=== PATIENT | female | born 1955 | race Caucasian/White ===

== ENCOUNTER 2020-08-05 09:57 | Outpatient (CLI) | payer MEDICARE, SELFPAY ==
[2020-08-05 10:24] LABS: Basophils % 0.4 %; Eosinophils % 0.4 %; Hematocrit 42.1 % (37.0-47.0); Hemoglobin 13.5 g/dL (11.5-15.3); Lymphocytes % 22.1 %; Mean Corpuscular HGB Conc 32.1 g/dL (30.0-36.0); Mean Corpuscular Hemoglobin 29.9 pg (28.0-34.0); Mean Corpuscular Volume 93.1 fL (81-99); Mean Platelet Volume 10.6 fL (7.4-10.4); Monocytes # 0.2 10^3/uL (0.2-0.9); Monocytes % 4.3 %; Neutrophils # 3.38 10^3/uL (1.8-7.7); Neutrophils % 72.4 %; Nucleated Red Blood Cells % 0 %; Platelet Count 240 10^3/cmm (130-400); Red Blood Count 4.52 10^6/uL (4.1-5.3); Red Cell Distribution Width 13.5 % (12.1-15.1); White Blood Count 4.7 10^3/uL (4.0-10.0)
[2020-08-05 10:45] LABS: Alanine Aminotransferase 13 U/L (0-33); Albumin Level 4.6 g/dL (3.5-5.2); Alkaline Phosphatase 47 IU/L (35-105); Aspartate Amino Transferase 18 U/L (0-32); Blood Urea Nitrogen 12 mg/dL (8-23); Calcium 9.5 mg/dL (8.5-10.5); Carbon Dioxide 24 mmol/L (22-29); Chloride 106 mmol/L (98-107); Globulin 2.7 g/dL (1.3-4.6); Glomerular Filtration Rate 72.4 mL/min (90-130); Glucose 115 mg/dL (65-115); Osmolality Calculated 291 mOsm/kg (285-295); Sodium 140 mmol/L (136-145); Total Bilirubin 0.3 mg/dL (0.15-1.2); Total Protein 7.3 g/dL (6.6-8.7)
--- NOTE | 2020-08-09 16:25 | ONC FU_ITS ---
Dr. Osborn Patient Follow-Up Note Patient: Patti Kuhn Unit #: [id number]: 1955 Dicatated By: Ankur Osborn M.D.Date of Visit:Aug 05, 2020 Onc Med Follow-up/Prog Note Chief Complaint: Breast cancer. History of Present Illness: This is a 61 year-old woman with grade 3 infiltrating ductal carcinoma of the right breast, stage IIIC (pT2,pN3, M0), ER/MA negative and HER-2/leticia negative. She underwent right modified radical mastectomy and prophylactic left mastectomy in October 2004. Pathology showed involvement in 18 of 21 axillary lymph nodes. She was given adjuvant chemotherapy with 4 cycles of FEC and 2 cycles of Taxotere. The Taxotere was abbreviated because of neurotoxicity. Chemotherapy was completed in March 2005. She was then given prophylactic chest wall radiation. She has remained on observation since then. She developed multiple complaints following the chemotherapy, the most significant being chronic pain and chronic fatigue. Thus far there has been no documented recurrence of her breast cancer. Her other medical illnesses include asthma, GERD, irritable bowel syndrome, and anxiety/depression. She has had evidence of vitamin D deficiency, but she was not able to tolerate a vitamin D3 supplement. She is seen for a scheduled visit. She has been feeling pretty good generally. She continues to complain that she is tired, particularly in the afternoons. Her ECOG score is 1. Appetite is variable, but her weight is stable. She has no fever, night sweats, or hot flashes. Her breathing has been okay. She very seldom has cough. She does not complain of chest pain. She has no GI complaints other than her bowels tend to fluctuate between diarrhea and constipation, but that is chronic. She has some urgency with urination and she occasionally has bladder incontinence. She has pain in her knees and feet and she also has back pain. She recently developed a painful knot at the base of her left thumb. She reports having some numbness/tingling in both hands. She has no other focal neurologic symptoms. Medications: Aleve 1 (220 mg) Tablet Oral daily PRN, Cetirizine HCl 10 mg - Take 1 Tablet Oral daily, LORazepam 1 (0.5 mg) Tablet Oral daily PRN, Pantoprazole Sodium 1 Tablet (of 40 mg) Tablet, enteric coated Oral daily, Singulair 1 (10 mg) Tablet Oral daily, Vitamin D3 1 Tablet (of 40377 Units) Oral q 7 days Allergies: Morphine Sulfate and tetracycline, nickel. Review of Systems: Constitutional - She feels tired, particularly in the afternoon. Appetite is variable, but her weight is stable.No fever, night sweats, or hot flashes. ECOG score is 1, ENMT - She always has sinus congestion/drainage. She complains of dry mouth. No sore throat or difficulty swallowing, Hematologic/Lymphatic - She has a few bruises, Respiratory - No shortness of breath. No cough. No pleuritic pain or hemoptysis, Cardiovascular - No angina pain. No palpitations, Gastrointestinal - No nausea or vomiting. Her acid reflux is adequately managed with pantoprazole. Bowel function is the same. She alternates between diarrhea and constipation. No blood in the stool or black stools, Genitourinary (F) - No dysuria or hematuria. No urinary frequency. She has urgency with urination and she has occasional incontinence, Musculoskeletal - No joint or bone pain, Integumentary - She has chronic pain in her knees and feet and in her back. She recently developed a painful knot at the base of her left thumb, Neurologic - She occasionally has headache and she has occasional dizziness. She has numbness/tingling in both hands. No other focal neurologic symptoms, Psychiatric - She has chronic anxiety. She does not sleep well at night. Vital Signs: Performed on Aug 05, 2020 11:33 Height - 63.00 in Weight - 142.2 lbs (HIGH) BSA - 1.67 sq.m BMI - 25.19 Temperature - 98.9 F (HIGH) Pulse - 83 /min Respiration - 18 /min BP - 144/72 mm(hg) (HIGH) O2 Sat - 98 % Pain - 8 Physical Examination: Constitutional - She looks pretty good generally, Eyes - Sclerae nonicteric. Conjunctivae clear, ENMT - No lesions noted in the oral cavity, Hematologic/Lymphatic - No cervical or clavicular adenopathy, Respiratory - Lungs are clear with good air movement bilaterally, Cardiovascular - Heart rhythm is regular. There is a II/ systolic murmur. There is no gallop or rub noted, Breasts - There are no chest wall lesions noted. There is no axillary adenopathy, Abdomen - Soft. Liver and spleen are not enlarged. There is no abdominal mass or ascites noted and there is no inguinal adenopathy, Extremities - No edema. There is a firm nodule at the left first metacarpal/phalangeal joint, Neurologic - No focal neurologic deficits noted. Lab/Imaging: Test performed on Aug 05, 2020 10:12 Sodium 140 mmol/L Potassium 4.0 mmol/L Chloride 106 mmol/L CO2 24 mmol/L Anion Gap 14.0 BUN 12 mg/dL Creatinine 0.8 mg/dL Cr Clearance (Est) 73.29 mL/min eGFR 72.4 mL/min Glucose 115 mg/dL Osmolality - Calculated 291 mOsm/kg Calcium 9.5 mg/dL Protein, Total 7.3 g/dL Albumin 4.6 g/dL Globulin 2.7 g/dL Bilirubin, Total 0.3 mg/dL ALT (SGPT) 13 U/L AST (SGOT) 18 U/L Alkaline Phosphatase 47 IU/L WBC 4.7 10 3/uL RBC 4.52 10 6/uL HGB 13.5 g/dL HCT 42.1 % MCV 93.1 fL MCH 29.9 pg MCHC 32.1 g/dL RDW 13.5 % Platelet Count 240 10 3/cmm MPV 10.6 fL Neutrophils 3.38 10 3/uL Lymphocytes 1.0 10 3/uL Monocytes 0.2 10 3/uL Eosinophils 0.0 10 3/uL Basophils 0.0 10 3/uL Neutrophil % 72.4 % Lymphocyte % 22.1 % Monocyte % 4.3 % Eosinophil % 0.4 % Basophils % 0.4 % NRBC % 0 % Impression: 1. The patient has grade 3 infiltrating ductal carcinoma of the right breast, stage IIIC, ER/MA negative and HER-2/leticia negative. 2. She underwent right modified radical mastectomy and prophylactic left mastectomy in October 2004. 3. She was given adjuvant chemotherapy with 4 cycles of FEC and 2 cycles of Taxotere, completed in March 2005. 4. She was then given prophylactic chest wall radiation. 5. She has had multiple chronic complaints following the chemothearapy including fatigue, cognitive dysfunction, and chronic pain. Her other medical illnesses include: 6. Asthma. 7. GERD. 8. Irritable bowel syndrome. 9. Anxiety and depression. She has had chronic fatigue and pain following her chemotherapy. She recently developed a painful knot at the base of her left thumb. Her overall clinical status otherwise appears stable. Overall, she has been doing well with no evidence of recurrence of the breast cancer. Plan: She remains on observation for the breast cancer. I will arrange for referral to rheumatology for treatment of the arthritis in her left thumb. I will see her again in 1 year, or sooner as needed. Signed By: Ankur Osborn M.D. <<Signature on File>>
== END 2020-08-05 09:58 | disposition home or self-care (01) ==
LOC: ONCMED 10:02
PROVIDERS: PCP Nurse Practitioner Family; Visit Provider Internal Medicine Medical Oncology
DX: Z08 Encounter for follow-up examination after completed treatment for malignant neoplasm (principal); Z85.3 Personal history of malignant neoplasm of breast; M19.042 Primary osteoarthritis, left hand; R53.83 Other fatigue; G89.29 Other chronic pain; J45.909 Unspecified asthma, uncomplicated; K21.9 Gastro-esophageal reflux disease without esophagitis; K58.9 Irritable bowel syndrome, unspecified; F41.8 Other specified anxiety disorders; Z92.3 Personal history of irradiation; Z92.21 Personal history of antineoplastic chemotherapy; Z90.13 Acquired absence of bilateral breasts and nipples
CPT/HCPCS: 36415; 80053; 85025; 99214

== ENCOUNTER → 2020-08-12 15:21 | Outpatient (BNVA) | payer MEDICARE, SELFPAY | PROVIDERS: PCP Nurse Practitioner Family; Visit Provider Internal Medicine Rheumatology | DX: M18.12 Unilateral primary osteoarthritis of first carpometacarpal joint, left hand (principal); C50.911 Malignant neoplasm of unspecified site of right female breast; Z17.1 Estrogen receptor negative status [ER-] | CPT/HCPCS: 20600; 99203; J1030 ==

== ENCOUNTER 2021-02-03 00:33 | Emergency (ER) | payer MEDICARE, SELFPAY ==
[2021-02-03 00:36] VITALS: BP 144/92; PULSE 86; RESP 15; TEMP 36.9; O2SAT 97; BMI 24.7
--- NOTE | 2021-02-03 00:54 | W.ED.NAVMDI ---
HPI - Nausea/Vomiting/Diarrhea General: Chief complaint: Nausea/Vomiting/Diarrhea Stated complaint: n/v Time Seen by Provider: 02/03/21 00:48 History of Present Illness: HPI Narrative: Patient states about 830s her stomach just started feeling nauseous. That 920 pain hit. She took some omeprazole that did not help. She said she ate big potato sour cream the night and started hurting soon after the. Patient's said he started having some pretty severe reflux after eating the same thing this evening. Patient denies any fever chills urinary , bowel or bladder problems. Does have a history of GERD and she said it hurts up in her upper abdomen especially. She said she vomited one time. MD elicited complaint: nausea, vomiting and abdominal pain Onset (ago): hour(s) Description of vomiting: food contents Associated nausea: Yes Associated abdominal pain: Yes Location of pain: Epigastric Pain consistency: constant Severity: moderate Quality: cramping and aching Exacerbating factors: none Relieving factors: none Associated symtoms: Reports nausea; Denies anxiety, change in vision, chest pain or headache(s) Review of Systems Const: Denies: fever(s), chills or body aches Eyes: Denies: change in vision or blurry vision ENMT: Denies: throat pain or nasal congestion Card: Denies: chest pain or dyspnea on exertion Resp: Denies: dyspnea, productive cough or non-productive cough GI: Reports: nausea, vomiting and other (Reflux) Musc: Denies: extremity pain Skin/Breast: Denies: rash Neuro: Denies: headache(s) Psych: Denies: anxiety or depression Jewel/Lymph: Denies: easy bruising PFSH ED PFSH: Medical History (Updated 08/12/20 @ 17:03 by Lance Steward MD) Breast cancer History of gastroesophageal reflux (GERD) Infiltrating ductal carcinoma of right female breast Osteoarthritis of carpometacarpal (CMC) joint of left thumb S/P steroid/lidocaine injection today Surgical History (Updated 08/12/20 @ 16:50 by Lance Steward MD) History of bilateral mastectomy for breast cancer Family History (Updated 08/12/20 @ 15:50 by Brooke Junior LPN) Other CAD (coronary artery disease) Denies family history of Rheumatoid arthritis Diabetes Lupus Chronic kidney disease (CKD) Lung disease Cancer Hypertension Stroke Social History (Updated 08/12/20 @ 15:50 by Brooke Junior LPN) Smoking and tobacco status: never smoked Alcohol intake: never History of recent travel: No Physical Exam Const: COMMON NORMALS: no acute distress, average body habitus and patient oriented x3 HENMT: COMMON NORMALS: normocephalic HEAD & SCALP: normal to inspection and normocephalic FACE & SINUS: normal facial exam Eye: COMMON NORMALS: conjunctivae normal GENERAL EYE: appearance normal, both eyes and all related structures CONJUNCTIVA: Yes conjunctivae normal Neck/C-Spine: COMMON NORMALS: no JVD Chest: COMMONS NORMALS: normal inspection of the chest Resp: COMMON NORMALS: normal respiratory effort and clear to auscultation bilaterally AUSCULTATION: clear to auscultation bilaterally Cardio: COMMON NORMALS: no JVD, regular rate and regular rhythm RATE: regular rate RHYTHM: regular rhythm GI: AUSCULTATION: Yes normoactive bowel sounds PALPATION: Yes Tenderness to palpation present (GI) (Gastric) PERCUSSION: normal to percussion Extremity: COMMON NORMALS: normal to inspection and full ROM Neuro: COMMON NORMALS: patient oriented x3 Course Vital Signs: Vital signs: Vital Signs Temperature 98.4 F 02/03/21 00:36 Pulse Rate 74 02/03/21 01:48 Respiratory Rate 20 H 02/03/21 01:48 Blood Pressure 124/84 02/03/21 01:48 Pulse Oximetry 96 02/03/21 01:48 MDM - Nausea/Vomiting/Diarrhea MDM Narrative: Medical decision making narrative: She had complete relief with GI cocktail. Patient requesting go home. Lab Data: Labs: Lab Results 02/03/21 02/03/21 Range/Units 01:25 01:25 WBC 11.0 H (4.0-10.0) 10^3/ uL RBC 4.22 (4.1-5.3) 10^6/u L Hgb 12.8 (11.5-15.3) g/dL Hct 38.5 (37.0-47.0) % MCV 91.2 (81-99) fL MCH 30.3 (28.0-34.0) pg MCHC 33.2 (30.0-36.0) g/dL RDW 13.4 (12.1-15.1) % Plt Count 241 (130-400) 10^3/c mm MPV 12.5 H (7.4-10.4) fL Neut % (Auto) 89.3 % Lymph % (Auto) 5.0 % Navarro % (Auto) 4.9 % Eos % (Auto) 0.2 % Baso % (Auto) 0.3 % Neut # (Auto) 9.87 H (1.8-7.7) 10^3/u L Lymph # (Auto) 0.6 L (0.8-4.8) 10^3/u L Navarro # (Auto) 0.5 (0.2-0.9) 10^3/u L Eos # (Auto) 0.0 (0.0-0.8) 10^3/u L Baso # (Auto) 0.0 (0.0-0.1) 10^3/u L Nucleated RBC % (a uto) 0 % Nucleated RBCs # 0.0 /100WBC Sodium Cancelled Potassium Cancelled Chloride Cancelled Carbon Dioxide Cancelled Anion Gap Cancelled BUN Cancelled Creatinine Cancelled GFR Calculation Cancelled Glucose Cancelled Calculated Osmolal ity Cancelled Calcium Cancelled Total Bilirubin Cancelled AST Cancelled ALT Cancelled Alkaline Phosphata se Cancelled Total Protein Cancelled Albumin Cancelled Globulin Cancelled Lipase Cancelled Discharge Plan Discharge Prescriptions: No Action cholecalciferol (vitamin D3) [Vitamin D3] 50 mcg (2,000 unit) capsule 150 mcg PO DAILY RF: 0 pantoprazole 40 mg tablet,delayed release (DR/EC) 40 mg PO DAILY 90 Days Qty: 90 RF: 3 montelukast [Singulair] 10 mg tablet 10 mg PO DAILY 90 Days Qty: 90 RF: 3 cetirizine [Zyrtec] 10 mg tablet 10 mg PO DAILY 90 Days Qty: 90 RF: 3 Coding Level of Care Code ED Inpatient Pharmacist for Chg Fwd Exam Comprehensive
[2021-02-03] MEDS: lidocaine 2% viscous 15 ML, aluminum-mag hydrox-simethicon 30 ML, sucralfate oral liq 1 GM PO (01:10)
[2021-02-03] MEDS: ondansetron 2 mg/ML SDV 2 mL 8 MG IVP (01:10)
[2021-02-03] MEDS: sodium chloride 0.9% 1,000 ML 999 ML IV (01:15)
[2021-02-03 01:46] LABS: Basophils % 0.3 %; Eosinophils % 0.2 %; Hematocrit 38.5 % (37.0-47.0); Hemoglobin 12.8 g/dL (11.5-15.3); Lymphocytes # 0.6 10^3/uL (0.8-4.8); Mean Corpuscular HGB Conc 33.2 g/dL (30.0-36.0); Mean Corpuscular Hemoglobin 30.3 pg (28.0-34.0); Mean Corpuscular Volume 91.2 fL (81-99); Mean Platelet Volume 12.5 fL (7.4-10.4); Monocytes # 0.5 10^3/uL (0.2-0.9); Monocytes % 4.9 %; Neutrophils # 9.87 10^3/uL (1.8-7.7); Neutrophils % 89.3 %; Nucleated Red Blood Cells % 0 %; Platelet Count 241 10^3/cmm (130-400); Red Blood Count 4.22 10^6/uL (4.1-5.3); Red Cell Distribution Width 13.4 % (12.1-15.1)
[2021-02-03 01:48] VITALS: BP 124/84; PULSE 74; RESP 20; O2SAT 96
[2021-02-03 02:39] VITALS: BP 124/84; PULSE 74; RESP 16; O2SAT 96
[2021-02-03 02:47] LABS: Alanine Aminotransferase 9 U/L (0-33); Albumin Level 3.7 g/dL (3.5-5.2); Alkaline Phosphatase 42 IU/L (35-105); Anion Gap 11.7 (5-19); Aspartate Amino Transferase 15 U/L (0-32); Blood Urea Nitrogen 13 mg/dL (8-23); Calcium 8.1 mg/dL (8.5-10.5); Carbon Dioxide 24 mmol/L (22-29); Chloride 112 mmol/L (98-107); Globulin 2.3 g/dL (1.3-4.6); Glucose 120 mg/dL (65-115); Lipase 34 U/L (13-60); Osmolality Calculated 299 mOsm/kg (285-295); Potassium 3.7 mmol/L (3.5-5.1); Sodium 144 mmol/L (136-145); Total Bilirubin 0.5 mg/dL (0.15-1.2)
== END 2021-02-03 02:43 | disposition home or self-care (01) ==
PROVIDERS: Emergency Provider Nurse Practitioner Family; PCP Nurse Practitioner Family
DX: R11.2 Nausea with vomiting, unspecified (principal); Z85.3 Personal history of malignant neoplasm of breast
CPT/HCPCS: 36415; 80053; 83690; 85025; 96361; 96374; 99283; J2405; J7030

== ENCOUNTER 2021-08-05 09:19 | Outpatient (CLI) | payer MEDICARE, SELFPAY ==
[2021-08-05 10:05] LABS: Basophils % 0.9 %; Eosinophils # 0.1 10^3/uL (0.0-0.8); Eosinophils % 1.1 %; Hematocrit 40.7 % (37.0-47.0); Hemoglobin 13.1 g/dL (11.5-15.3); Lymphocytes % 23.7 %; Mean Corpuscular HGB Conc 32.2 g/dL (30.0-36.0); Mean Corpuscular Hemoglobin 29.8 pg (28.0-34.0); Mean Corpuscular Volume 92.5 fl (81-99); Mean Platelet Volume 11.2 fL (7.4-10.4); Monocytes # 0.3 10^3/uL (0.2-0.9); Monocytes % 6.2 %; Neutrophils # 2.98 10^3/uL (1.8-7.7); Neutrophils % 67.9 %; Nucleated Red Blood Cells % 0 %; Platelet Count 233 10^3/cmm (130-400); Red Cell Distribution Width 13.5 % (12.1-15.1); White Blood Count 4.4 10^3/uL (4.0-10.0)
[2021-08-05 10:35] LABS: Alanine Aminotransferase 10 U/L (0-33); Albumin Level 4.3 g/dL (3.5-5.2); Alkaline Phosphatase 48 IU/L (35-105); Aspartate Amino Transferase 15 U/L (0-32); Blood Urea Nitrogen 9 mg/dL (8-23); Calcium 9.4 mg/dL (8.5-10.5); Carbon Dioxide 26 mmol/L (22-29); Chloride 107 mmol/L (98-107); Globulin 2.6 g/dL (1.3-4.6); Glomerular Filtration Rate 72.2 mL/min (90-130); Glucose 99 mg/dL (65-115); Osmolality Calculated 293 mOsm/kg (285-295); Sodium 142 mmol/L (136-145); Total Bilirubin 0.4 mg/dL (0.15-1.2); Total Protein 6.9 g/dL (6.6-8.7)
--- NOTE | 2021-08-09 09:50 | ONC FU_ITS ---
Dr. Osborn Patient Follow-Up Note Patient: Patti Kuhn Unit #: [id number]: 1955 Dicatated By: Ankur Osborn M.D.Date of Visit:Aug 05, 2021 Onc Med Follow-up/Prog Note Chief Complaint: Breast cancer. History of Present Illness: This is a 65 year-old woman with grade 3 infiltrating ductal carcinoma of the right breast, stage IIIC (pT2,pN3, M0), ER/WA negative and HER-2/leticia negative. She underwent right modified radical mastectomy and prophylactic left mastectomy in October 2004. Pathology showed involvement in 18 of 21 axillary lymph nodes. She was given adjuvant chemotherapy with 4 cycles of FEC and 2 cycles of Taxotere. The Taxotere was abbreviated because of neurotoxicity. Chemotherapy was completed in March 2005. She was then given prophylactic chest wall radiation. She was then followed expectantly. She developed multiple complaints following the chemotherapy, the most significant being chronic pain and chronic fatigue, but there was no documented recurrence of her breast cancer. Her other medical illnesses include asthma, GERD, irritable bowel syndrome, and anxiety/depression. She has had evidence of vitamin D deficiency, but she was not able to tolerate a vitamin D3 supplement. Her DEXA scan and July 2017 showed evidence of osteopenia with T score -1.7 in the lumbar spine, -1.8 in the left hip, and -1.5 in the right hip. She is a non-smoker. She is seen for a scheduled visit. She has been feeling okay, though she continues to have significant fatigue. She says her energy comes and goes. She is able to do light work. ECOG score is 1. Her appetite also comes and goes. Her weight is down 6 pounds compared to a year ago. She does not have fever, night sweats, or hot flashes. She had recently been having dental problems and she was told by the dentist that was due to dry mouth. She is now stopped taking Zyrtec. Recently she has developed pain in her right eye/right facial area, that seem to be associated with sinus drainage. She has had a little bit of sore throat. She says her breathing is not real good, but that she attributes to allergies. She does not complain of cough. She still has some pain in her chest wall. In January she had been seen in the ER with nausea/vomiting. It was attributed to GERD. She thinks she had food poisoning. She has had no recurrence of those symptoms and her GERD is otherwise been managed adequately with pantoprazole. Her bowels tend to fluctuate between diarrhea and constipation. She has some urgency with urination. She continues to complain that she is sore all over. She says her knees pop. She has headaches and she occasionally has dizziness. She sometimes has numbness/tingling. Medications: Aleve 1 (220 mg) Tablet Oral daily PRN, Cetirizine HCl 10 mg - Take 1 Tablet Oral daily, Pantoprazole Sodium 1 Tablet (of 40 mg) Tablet, enteric coated Oral daily, Singulair 1 (10 mg) Tablet Oral daily, Vitamin D3 1 Tablet ([place] 22256 Units) Oral q 7 days Allergies: Morphine Sulfate and tetracycline, nickel. Vital Signs: Performed on Aug 05, 2021 10:57 Height - 63.00 in Weight - 136.8 lbs (LOW) BSA - 1.65 sq.m BMI - 24.23 Temperature - 98.6 F Pulse - 66 /min Respiration - 18 /min BP - 133/73 mm(hg) O2 Sat - 99 % Pain - 8 Fatigue - 5 Physical Examination: Constitutional - She looks pretty good generally, Eyes - Sclerae nonicteric. Conjunctivae clear, ENMT - No lesions noted in the oral cavity, Hematologic/Lymphatic - No cervical, clavicular, or axillary adenopathy, Respiratory - Lungs are clear with good air movement bilaterally, Cardiovascular - Heart rhythm is regular. There is no murmur, gallop, or rub noted, Breasts - There are no chest wall lesions masses noted. There is no axillary adenopathy, Abdomen - Soft. Liver and spleen are not enlarged. There is no abdominal mass or ascites noted and there is no inguinal adenopathy, Extremities - No edema, Neurologic - No focal neurologic deficits noted. Lab/Imaging: Test performed on Aug 05, 2021 09:30 Sodium 142 mmol/L Potassium 4.0 mmol/L Chloride 107 mmol/L CO2 26 mmol/L Anion Gap 13.0 BUN 9 mg/dL Creatinine 0.8 mg/dL Cr Clearance (Est) 69.59 mL/min eGFR 72.2 mL/min Glucose 99 mg/dL Osmolality - Calculated 293 mOsm/kg Calcium 9.4 mg/dL Protein, Total 6.9 g/dL Albumin 4.3 g/dL Globulin 2.6 g/dL Bilirubin, Total 0.4 mg/dL ALT (SGPT) 10 U/L AST (SGOT) 15 U/L Alkaline Phosphatase 48 IU/L WBC 4.4 10 3/uL RBC 4.40 10 6/uL HGB 13.1 g/dL HCT 40.7 % MCV 92.5 fl MCH 29.8 pg MCHC 32.2 g/dL RDW 13.5 % Platelet Count 233 10 3/cmm MPV 11.2 fL Neutrophils 2.98 10 3/uL Lymphocytes 1.0 10 3/uL Monocytes 0.3 10 3/uL Eosinophils 0.1 10 3/uL Basophils 0.0 10 3/uL Neutrophil % 67.9 % Lymphocyte % 23.7 % Monocyte % 6.2 % Eosinophil % 1.1 % Basophils % 0.9 % NRBC % 0 % Problem List: 1. Grade 3 infiltrating ductal carcinoma of the right breast, stage IIIC, ER/WA negative and HER-2/leticia negative. 2. She has had chronic fatigue, cognitive dysfunction, and chronic pain following adjuvant chemotherapy. 3. Asthma. 4. GERD. 5. Irritable bowel syndrome. 6. Osteopenia. 7. Vitamin D deficiency. 8. Anxiety and depression. Problems Addressed with this Encounter and Plan: 1. Patient with grade 3 infiltrating ductal carcinoma of the right breast, stage IIIC, ER/WA negative and HER-2/leticia negative. She underwent right modified radical mastectomy and prophylactic left mastectomy in October 2004. She was given adjuvant chemotherapy with 4 cycles of FEC and 2 cycles of Taxotere, completed in March 2005. She was then given prophylactic chest wall radiation. She was then followed expectantly. She has had chronic fatigue and pain following her chemotherapy, and she also has had some cognitive dysfunction. However, thus far there has been no evidence of recurrence of the breast cancer. She remains on observation/expectant management. She can continue her regular follow-up with Cece Lyn. I will see her again as needed. 2. She had evidence of osteopenia on her previous bone density study, but that was back in July 2017. It needs to be repeated, and that will be scheduled. She will further evaluation as indicated. Signed By: Ankur Osborn M.D. <<Signature on File>>
== END 2021-08-05 09:20 | disposition home or self-care (01) ==
PROVIDERS: PCP Nurse Practitioner Family; Visit Provider Internal Medicine Medical Oncology
DX: C50.811 Malignant neoplasm of overlapping sites of right female breast (principal); Z17.1 Estrogen receptor negative status [ER-]
CPT/HCPCS: 36415; 80053; 85025; 99214

== ENCOUNTER 2021-08-18 14:00 | Outpatient (CLI) | payer MEDICARE, SELFPAY ==
--- NOTE | 2021-08-18 14:08 | XR_ITS ---
WS: [id number] SCREENING DEXA SCAN [employer] [facility] [employer] [facility] CLINICAL INFORMATION: OSTEOPENIA COMPARISON: July 23, 2017 FINDINGS: The L1-L4 bone mineral density measures 0.971 g/cm2. This corresponds to a T score score of -1.7 and Z score of -0.1. Left femoral neck bone mineral density measures 0.779 g/cm2. This corresponds to a T score of -1.8 an d Z score of -0.6. Right femoral neck bone mineral density measures 0.806 g/cm2. This corresponds to a T score -1.6of an d Z score of -0.3. Mean femoral neck bone mineral density measures 0.793 g/cm2. This corresponds to a T score of -1.7 an d Z score of -0.4. XR/XR DEXA axial skeleton* [id number] IMPRESSION: Osteopenia Patient's FRAX calculated 10 year probability for major osteoporotic fracture i s 35.5 % and osteoporotic hip fracture is 4.4%.
== END 2021-08-18 14:01 | disposition home or self-care (01) ==
PROVIDERS: PCP Nurse Practitioner Family; Visit Provider Internal Medicine Medical Oncology
DX: M81.0 Age-related osteoporosis without current pathological fracture (principal); M85.80 Other specified disorders of bone density and structure, unspecified site
CPT/HCPCS: 77080

== ENCOUNTER 2021-12-22 05:05 | Emergency (ER) | payer MEDICARE, SELFPAY ==
[2021-12-22 05:11] VITALS: BP 171/94; PULSE 81; RESP 18; TEMP 36.6; O2SAT 96; BMI 24.4
[2021-12-22 05:25] LABS: Basophils % 0.2 %; Eosinophils % 0.3 %; Hematocrit 45.8 % (37.0-47.0); Hemoglobin 14.7 g/dL (11.5-15.3); Lymphocytes # 0.6 10^3/uL (0.8-4.8); Lymphocytes % 4.8 %; Mean Corpuscular HGB Conc 32.1 g/dL (30.0-36.0); Mean Corpuscular Hemoglobin 29.7 pg (28.0-34.0); Mean Corpuscular Volume 92.5 fl (81-99); Mean Platelet Volume 10.6 fL (7.4-10.4); Monocytes # 0.4 10^3/uL (0.2-0.9); Monocytes % 2.8 %; Neutrophils # 11.74 10^3/uL (1.8-7.7); Neutrophils % 91.4 %; Nucleated Red Blood Cells % 0 %; Platelet Count 232 10^3/cmm (130-400); Red Blood Count 4.95 10^6/uL (4.1-5.3); Red Cell Distribution Width 13.4 % (12.1-15.1); White Blood Count 12.8 10^3/uL (4.0-10.0)
[2021-12-22] MEDS: sodium chloride 0.9% 1,000 ML 999 ML IV (05:28)
[2021-12-22] MEDS: ondansetron 2 mg/ML SDV 2 mL 4 MG IVP (05:28)
--- NOTE | 2021-12-22 05:32 | CTR_ITS ---
PROCEDURE INFORMATION: Exam: CT Abdomen And Pelvis With Contrast Exam date and time: 12/22/2021 5:32 AM Age: 66 years old Clinical indication: Nausea and vomiting; Prior surgery; Surgery type: Double mastectomy; Patient HX: C/O n/v/d. History of ibs. Additional info: Vomiting diarrhea, HX of cancer TECHNIQUE: Imaging protocol: Computed tomography of the abdomen and pelvis with contrast. Radiation optimization: All CT scans at this facility use at least one of these dose optimization techniques: automated exposure control; mA and/or kV adjustment per patient size (includes targeted exams where dose is matched to clinical indication); or iterative reconstruction. Contrast material: OMNI 300; Contrast volume: 95 ml; Contrast route: INTRAVENOUS (IV); COMPARISON: CT abdomen pelvis w con* [id number] 07/23/2017 2:14 PM RADIATION DOSE METRICS: Total DLP (mGy-cm): 1148.39 FINDINGS: Liver: Unremarkable. Gallbladder and bile ducts: Unremarkable. Pancreas: Unremarkable. Spleen: Unremarkable. Adrenal glands: Unremarkable. Kidneys and ureters: The right kidney is unremarkable. Subcentimeter hypodensity in the left kidney upper pole, statistically likely to represent a cyst (no further imaging suggested regarding this lesion). Stomach and bowel: No bowel obstruction identified. Diverticulosis of the colon without evidence of diverticulitis. Appendix: A normal-appearing appendix is seen in the right lower quadrant. Intraperitoneal space: No free intraperitoneal air identified. No free intraperitoneal fluid identified. Vasculature: No abdominal aortic aneurysm. Lymph nodes: Unremarkable. Urinary bladder: Unremarkable as visualized. Reproductive: Unremarkable as visualized. Bones/joints: Mild degenerative changes of the lumbar spine. Soft tissues: Unremarkable. CT/CT abdomen pelvis w con* [id number] IMPRESSION: 1. No acute intra-abdominal/intrapelvic process identified.
--- NOTE | 2021-12-22 05:37 | ED_ITS ---
Documented by User: Kaleb Luna DO 12/22/21 05:43 HPI - Nausea/Vomiting/Diarrhea General: Chief complaint: Nausea/Vomiting/Diarrhea Stated complaint: N/V/D Time Seen by Provider: 12/22/21 05:13 Source: patient History of Present Illness: 66-year-old female with a history of breast cancer. She started vomiting and having diarrhea around 120 this morning. She felt well yesterday. No fever. Some belly cramping. No blood in the stool. No sick contacts. MD elicited complaint: nausea, vomiting and diarrhea Pertinent past history: other Onset (ago): hour(s) Description of vomiting: watery Description of diarrhea: watery Associated nausea: Yes Associated abdominal pain: Yes (Cramping) Location of pain: Diffuse Radiation: diffuse Pain consistency: intermittent Severity: moderate Quality: cramping Relieving factors: none Associated symtoms: Reports bloating and nausea; Denies altered mental status, change in vision, chest pain, cough, diaphoresis, fevers/chills, headache(s) or short of breath Review of Systems Const: Denies: diaphoresis Eyes: Denies: change in vision ENMT: Denies: throat pain Card: Denies: chest pain Resp: Denies: dyspnea, productive cough or non-productive cough GI: Reports: nausea and bloating : Denies: flank pain Neuro: Denies: headache(s) PFSH ED PFSH: Medical History Breast cancer History of gastroesophageal reflux (GERD) Infiltrating ductal carcinoma of right female breast Osteoarthritis of carpometacarpal (CMC) joint of left thumb S/P steroid/lidocaine injection today Surgical History History of bilateral mastectomy for breast cancer Family History (Updated 08/12/20 @ 15:50 by Brooke Junior LPN) Other CAD (coronary artery disease) Denies family history of Rheumatoid arthritis Diabetes Lupus Chronic kidney disease (CKD) Lung disease Cancer Hypertension Stroke Social History (Updated 08/12/20 @ 15:50 by Brooke Junior LPN) Smoking and tobacco status: never smoked Alcohol intake: never History of recent travel: No Physical Exam Const: EXAM LIMITATIONS: no altered mental status GENERAL APPEARANCE: cooperative and ill appearing (Mild) NUTRITIONAL APPEARANCE: thin ORIENTATION/CONSCIOUSNESS: Yes awake, Yes oriented to person and Yes oriented to time HENMT: COMMON NORMALS: normocephalic, atraumatic and Normal external nose present HEAD & SCALP: normocephalic and atraumatic NOSE: Normal external nose present Eye: COMMON NORMALS: Equal, round and reactive pupils present and EOMs intact bilaterally PUPIL: Yes Equal, round and reactive pupils present Neck/C-Spine: COMMON NORMALS: full ROM Chest: COMMONS NORMALS: normal inspection of the chest Resp: COMMON NORMALS: normal respiratory effort, No use of accessory muscles and clear to auscultation bilaterally AUSCULTATION: clear to auscultation bilaterally Cardio: COMMON NORMALS: regular rate and regular rhythm RATE: regular rate RHYTHM: regular rhythm GI: COMMON NORMALS: Normal to inspection, nondistended, normoactive bowel sounds present and Soft to palpation PALPATION: Yes Soft to palpation, Yes Tenderness to palpation present (GI) (Mild diffuse) and No Guarding due to palpation present (GI) : COMMON NORMALS: Yes no CVA tenderness BLADDER/KIDNEY EXAM: Yes no CVA tenderness Back/Pelvis: COMMON NORMALS: no CVA tenderness Extremity: COMMON NORMALS: no pedal edema Neuro: JEREMY COMA SCALE: document GCS findings Jeremy coma scale eye op ening: Spontaneous [place] coma scale verbal response: Orientated [place] coma scale motor response: Obey commands [place] coma scale total score: 15 SENSORIUM/ORIENTATION: Yes oriented to person and Yes oriented to time Course Vital Signs: Vital signs: Vital Signs Temperature 97.9 F 12/22/21 05:11 Pulse Rate 74 12/22/21 07:13 Respiratory Rate 16 12/22/21 07:13 Blood Pressure 146/83 12/22/21 07:13 Pulse Oximetry 98 12/22/21 07:13 MDM - Nausea/Vomiting/Diarrhea Medical Decision Making 66-year-old female with 4 hours of vomiting and diarrhea. White blood cell count is 12.8. Other laboratory and CT is pending. She will be checked out to Dr. Monge at shift change to follow-up on laboratory and CT findings. Lab Data : 12/22/21 05:18 12/22/21 05:18 Radiology Impressions Abdomen/Pelvis CT 12/22/21 05:32 IMPRESSION: 1. No acute intra-abdominal/intrapelvic process identified. Laboratory Results WBC 12.8 10^3/uL (4.0-10.0) H 12/22/21 05:18 RBC 4.95 10^6/uL (4.1-5.3) 12/22/21 05:18 Hgb 14.7 g/dL (11.5-15.3) 12/22/21 05:18 Hct 45.8 % (37.0-47.0) 12/22/21 05:18 MCV 92.5 fl (81-99) 12/22/21 05:18 MCH 29.7 pg (28.0-34.0) 12/22/21 05:18 MCHC 32.1 g/dL (30.0-36.0) 12/22/21 05:18 RDW 13.4 % (12.1-15.1) 12/22/21 05:18 Plt Count 232 10^3/cmm (130-400) 12/22/21 05:18 MPV 10.6 fL (7.4-10.4) H 12/22/21 05:18 Neut % (Auto) 91.4 % 12/22/21 05:18 Lymph % (Auto) 4.8 % 12/22/21 05:18 [place] % (Auto) 2.8 % 12/22/21 05:18 Eos % (Auto) 0.3 % 12/22/21 05:18 Baso % (Auto) 0.2 % 12/22/21 05:18 Neut # (Auto) 11.74 10^3/uL (1.8-7.7) H 12/22/21 05:18 Lymph # (Auto) 0.6 10^3/uL (0.8-4.8) L 12/22/21 05:18 [place] # (Auto) 0.4 10^3/uL (0.2-0.9) 12/22/21 05:18 Eos # (Auto) 0.0 10^3/uL (0.0-0.8) 12/22/21 05:18 Baso # (Auto) 0.0 10^3/uL (0.0-0.1) 12/22/21 05:18 Nucleated RBC % (auto) 0 % 12/22/21 05:18 Nucleated RBCs # 0.0 /100WBC 12/22/21 05:18 Sodium 139 mmol/L (136-145) 12/22/21 05:18 Potassium 3.9 mmol/L (3.5-5.1) 12/22/21 05:18 Chloride 103 mmol/L (98-107) 12/22/21 05:18 Carbon Dioxide 23 mmol/L (22-29) 12/22/21 05:18 Anion Gap 16.9 (5-19) 12/22/21 05:18 BUN 17 mg/dL (8-23) 12/22/21 05:18 Creatinine 1.0 mg/dL (0.5-0.9) H 12/22/21 05:18 GFR Calculation 55.6 mL/min (90-130) L 12/22/21 05:18 Glucose 135 mg/dL (65-115) H 12/22/21 05:18 Calculated Osmolality 292 mOsm/kg (285-295) 12/22/21 05:18 Lactate 1.0 mmol/L (0.5-2.2) 12/22/21 05:26 Calcium 9.1 mg/dL (8.5-10.5) 12/22/21 05:18 Total Bilirubin 0.5 mg/dL (0.15-1.2) 12/22/21 05:18 AST 16 U/L (0-32) 12/22/21 05:18 ALT 13 U/L (0-33) 12/22/21 05:18 Alkaline Phosphatase 52 IU/L (35-105) 12/22/21 05:18 C-Reactive Protein 5.3 mg/L (0.0-4.9) H 12/22/21 05:18 Total Protein 7.6 g/dL (6.6-8.7) 12/22/21 05:18 Albumin 4.7 g/dL (3.5-5.2) 12/22/21 05:18 Globulin 2.9 g/dL (1.3-4.6) 12/22/21 05:18 Lipase 47 U/L (13-60) 12/22/21 05:18 Procalcitonin 0.05 ng/mL (0-0.5) 12/22/21 05:18 Urine Color Yellow (Yellow) 12/22/21 Unknown Urine Appearance Clear (CLEAR) 12/22/21 Unknown Urine pH 6 (5-7) 12/22/21 Unknown Ur Specific [place] 1.015 (1.005-1.030) 12/22/21 Unknown Urine Protein Neg (Negative) 12/22/21 Unknown Urine Glucose (UA) Norm (Normal) 12/22/21 Unknown Urine Ketones 1+ (Negative) H 12/22/21 Unknown Urine Blood 2+ (Negative) H 12/22/21 Unknown Urine Nitrate Negative (Negative) 12/22/21 Unknown Urine Bilirubin Neg (Negative) 12/22/21 Unknown Urine Urobilinogen Norm mg/dL (Negative) 12/22/21 Unknown Ur Leukocyte Esterase Negative (Negative) 12/22/21 Unknown Urine RBC 5-10 /hpf (0-2) H 12/22/21 Unknown Urine WBC 0-4 /hpf (0-5) H 12/22/21 Unknown Ur Squamous Epith Cells 0-4 /hpf (0-5) H 12/22/21 Unknown Amorphous Sediment Not Reportable 12/22/21 Unknown Urine Bacteria 1+ /hpf (NONE) H 12/22/21 Unknown Hyaline Casts 0-4 /lpf H 12/22/21 Unknown Urine Mucus 1+ /hpf 12/22/21 Unknown Discharge Plan Discharge Patient Disposition: Home Clinical Impression: Nausea & vomiting Condition: Stable Prescriptions: New Zofran 4 mg tablet 4 mg PO Q6H PRN (Reason: nausea and vomiting) Qty: 15 0RF No Action cholecalciferol (vitamin D3) [Vitamin D3] 50 mcg (2,000 unit) capsule 150 mcg PO DAILY 0RF pantoprazole 40 mg tablet,delayed release (DR/EC) 40 mg PO DAILY 90 Days Qty: 90 3RF montelukast [Singulair] 10 mg tablet 10 mg PO DAILY 90 Days Qty: 90 3RF cetirizine [Zyrtec] 10 mg tablet 10 mg PO DAILY 90 Days Qty: 90 3RF Discharge Orders: Discharge ED (Routine); Ordered 12/22/21 Ordered By: Guerrero Monge Referrals: Cece Lyn FNP [Primary Care Provider] - Discharge Diet: Clear Liquid Discharge Activity: Increase activity as tolerated Patient Instructions: Opioid Safety Activity Restrictions/Additional Instructions: Clear liquid diet for 24-48 hrs then advance as tolerated. Sign Out Sign Out Data: Patient Sign Out occurred on 12/22/21 at 06:11. Patient's care was discussed, an d care was transferred from to Guerrero Monge DO. Coding Level of Care Code ED Hospital Monitor for Chg Fwd Exam Comprehensive Documented by User: Guerrero Monge DO 12/22/21 08:02 HPI - Nausea/Vomiting/Diarrhea General: Chief complaint: Nausea/Vomiting/Diarrhea Stated complaint: N/V/D Time Seen by Provider: 12/22/21 05:13 PFSH ED PFSH: Medical History Breast cancer History of gastroesophageal reflux (GERD) Infiltrating ductal carcinoma of right female breast Osteoarthritis of carpometacarpal (CMC) joint of left thumb S/P steroid/lidocaine injection today Surgical History History of bilateral mastectomy for breast cancer Family History (Updated 08/12/20 @ 15:50 by Brooke Junior LPN) Other CAD (coronary artery disease) Denies family history of Rheumatoid arthritis Diabetes Lupus Chronic kidney disease (CKD) Lung disease Cancer Hypertension Stroke Social History (Updated 08/12/20 @ 15:50 by Brooke Junior LPN) Smoking and tobacco status: never smoked Alcohol intake: never History of recent travel: No Physical Exam Neuro: JEREMY COMA SCALE: document GCS findings [place] coma scale total score: 15 Course Vital Signs: Vital signs: Vital Signs Temperature 97.9 F 12/22/21 05:11 Pulse Rate 74 12/22/21 07:13 Respiratory Rate 16 12/22/21 07:13 Blood Pressure 146/83 12/22/21 07:13 Pulse Oximetry 98 12/22/21 07:13 MDM - Nausea/Vomiting/Diarrhea Medical Decision Making 66-year-old female with 4 hours of vomiting and diarrhea. White blood cell count is 12.8. Other laboratory and CT is pending. She will be checked out to Dr. Monge at shift change to follow-up on laboratory and CT findings. CT negative patient is feeling better will discharge home with Zofran to use as needed clear liquid diet 24 to 48 hours and advance as tolerated Medical Records I reviewed the patient's medical records. Lab Data I reviewed the patient's lab results. : 12/22/21 05:18 12/22/21 05:18 Radiology Impressions Abdomen/Pelvis CT 12/22/21 05:32 IMPRESSION: 1. No acute intra-abdominal/intrapelvic process identified. Laboratory Results WBC 12.8 10^3/uL (4.0-10.0) H 12/22/21 05:18 RBC 4.95 10^6/uL (4.1-5.3) 12/22/21 05:18 Hgb 14.7 g/dL (11.5-15.3) 12/22/21 05:18 Hct 45.8 % (37.0-47.0) 12/22/21 05:18 MCV 92.5 fl (81-99) 12/22/21 05:18 MCH 29.7 pg (28.0-34.0) 12/22/21 05:18 MCHC 32.1 g/dL (30.0-36.0) 12/22/21 05:18 RDW 13.4 % (12.1-15.1) 12/22/21 05:18 Plt Count 232 10^3/cmm (130-400) 12/22/21 05:18 MPV 10.6 fL (7.4-10.4) H 12/22/21 05:18 Neut % (Auto) 91.4 % 12/22/21 05:18 Lymph % (Auto) 4.8 % 12/22/21 05:18 [place] % (Auto) 2.8 % 12/22/21 05:18 Eos % (Auto) 0.3 % 12/22/21 05:18 Baso % (Auto) 0.2 % 12/22/21 05:18 Neut # (Auto) 11.74 10^3/uL (1.8-7.7) H 12/22/21 05:18 Lymph # (Auto) 0.6 10^3/uL (0.8-4.8) L 12/22/21 05:18 [place] # (Auto) 0.4 10^3/uL (0.2-0.9) 12/22/21 05:18 Eos # (Auto) 0.0 10^3/uL (0.0-0.8) 12/22/21 05:18 Baso # (Auto) 0.0 10^3/uL (0.0-0.1) 12/22/21 05:18 Nucleated RBC % (auto) 0 % 12/22/21 05:18 Nucleated RBCs # 0.0 /100WBC 12/22/21 05:18 Sodium 139 mmol/L (136-145) 12/22/21 05:18 Potassium 3.9 mmol/L (3.5-5.1) 12/22/21 05:18 Chloride 103 mmol/L (98-107) 12/22/21 05:18 Carbon Dioxide 23 mmol/L (22-29) 12/22/21 05:18 Anion Gap 16.9 (5-19) 12/22/21 05:18 BUN 17 mg/dL (8-23) 12/22/21 05:18 Creatinine 1.0 mg/dL (0.5-0.9) H 12/22/21 05:18 GFR Calculation 55.6 mL/min (90-130) L 12/22/21 05:18 Glucose 135 mg/dL (65-115) H 12/22/21 05:18 Calculated Osmolality 292 mOsm/kg (285-295) 12/22/21 05:18 Lactate 1.0 mmol/L (0.5-2.2) 12/22/21 05:26 Calcium 9.1 mg/dL (8.5-10.5) 12/22/21 05:18 Total Bilirubin 0.5 mg/dL (0.15-1.2) 12/22/21 05:18 AST 16 U/L (0-32) 12/22/21 05:18 ALT 13 U/L (0-33) 12/22/21 05:18 Alkaline Phosphatase 52 IU/L (35-105) 12/22/21 05:18 C-Reactive Protein 5.3 mg/L (0.0-4.9) H 12/22/21 05:18 Total Protein 7.6 g/dL (6.6-8.7) 12/22/21 05:18 Albumin 4.7 g/dL (3.5-5.2) 12/22/21 05:18 Globulin 2.9 g/dL (1.3-4.6) 12/22/21 05:18 Lipase 47 U/L (13-60) 12/22/21 05:18 Procalcitonin 0.05 ng/mL (0-0.5) 12/22/21 05:18 Urine Color Yellow (Yellow) 12/22/21 Unknown Urine Appearance Clear (CLEAR) 12/22/21 Unknown Urine pH 6 (5-7) 12/22/21 Unknown Ur Specific [place] 1.015 (1.005-1.030) 12/22/21 Unknown Urine Protein Neg (Negative) 12/22/21 Unknown Urine Glucose (UA) Norm (Normal) 12/22/21 Unknown Urine Ketones 1+ (Negative) H 12/22/21 Unknown Urine Blood 2+ (Negative) H 12/22/21 Unknown Urine Nitrate Negative (Negative) 12/22/21 Unknown Urine Bilirubin Neg (Negative) 12/22/21 Unknown Urine Urobilinogen Norm mg/dL (Negative) 12/22/21 Unknown Ur Leukocyte Esterase Negative (Negative) 12/22/21 Unknown Urine RBC 5-10 /hpf (0-2) H 12/22/21 Unknown Urine WBC 0-4 /hpf (0-5) H 12/22/21 Unknown Ur Squamous Epith Cells 0-4 /hpf (0-5) H 12/22/21 Unknown Amorphous Sediment Not Reportable 12/22/21 Unknown Urine Bacteria 1+ /hpf (NONE) H 12/22/21 Unknown Hyaline Casts 0-4 /lpf H 12/22/21 Unknown Urine Mucus 1+ /hpf 12/22/21 Unknown Discharge Plan Discharge Patient Disposition: Home Clinical Impression: Nausea & vomiting Condition: Stable Prescriptions: New Zofran 4 mg tablet 4 mg PO Q6H PRN (Reason: nausea and vomiting) Qty: 15 0RF No Action cholecalciferol (vitamin D3) [Vitamin D3] 50 mcg (2,000 unit) capsule 150 mcg PO DAILY 0RF pantoprazole 40 mg tablet,delayed release (DR/EC) 40 mg PO DAILY 90 Days Qty: 90 3RF montelukast [Singulair] 10 mg tablet 10 mg PO DAILY 90 Days Qty: 90 3RF cetirizine [Zyrtec] 10 mg tablet 10 mg PO DAILY 90 Days Qty: 90 3RF Discharge Orders: Discharge ED (Routine); Ordered 12/22/21 Ordered By: Guerrero Monge Referrals: Cece Lyn [employer] [Primary Care Provider] - Discharge Diet: Clear Liquid Discharge Activity: Increase activity as tolerated Patient Instructions: Opioid Safety Activity Restrictions/Additional Instructions: Clear liquid diet for 24-48 hrs then advance as tolerated. Sign Out Sign Out Data: Patient Sign Out occurred on 12/22/21 at 06:11. Patient's care was discussed, and care was transferred from to Guerrero Monge DO. Coding Level of Care Code ED Hospital Monitor for Marko Fwd Exam Comprehensive
[2021-12-22 05:48] LABS: Alanine Aminotransferase 13 U/L (0-33); Albumin Level 4.7 g/dL (3.5-5.2); Alkaline Phosphatase 52 IU/L (35-105); Anion Gap 16.9 (5-19); Aspartate Amino Transferase 16 U/L (0-32); Blood Urea Nitrogen 17 mg/dL (8-23); C Reactive Protein 5.3 mg/L (0.0-4.9); Calcium 9.1 mg/dL (8.5-10.5); Carbon Dioxide 23 mmol/L (22-29); Chloride 103 mmol/L (98-107); Globulin 2.9 g/dL (1.3-4.6); Glomerular Filtration Rate 55.6 mL/min (90-130); Glucose 135 mg/dL (65-115); Lipase 47 U/L (13-60); Osmolality Calculated 292 mOsm/kg (285-295); Potassium 3.9 mmol/L (3.5-5.1); Sodium 139 mmol/L (136-145); Total Bilirubin 0.5 mg/dL (0.15-1.2); Total Protein 7.6 g/dL (6.6-8.7)
[2021-12-22 05:55] LABS: Procalcitonin 0.05 ng/mL (0-0.5)
[2021-12-22] MEDS: iohexol 300 mg/mL 100 mL Btl IV (06:07)
[2021-12-22 06:09] LABS: Add Urine Microscopic? YES; Bilirubin Urine Neg (Negative); Blood Urine 2+ (Negative); Glucose Urine UA Norm (Normal); Ketones Urine 1+ (Negative); Leukocyte Esterase Urine Negative (Negative); Nitrate Urine Negative (Negative); Protein Urine Neg (Negative); Specific Gravity, Urine 1.015 (1.005-1.030); Urine Appearance Clear (CLEAR); Urine Color Yellow (Yellow); Urobilinogen Urine Norm (Negative); pH Urine 6 (5-7)
[2021-12-22 06:21] LABS: WBC Urine 0-4 /hpf (0-5)
[2021-12-22 06:22] LABS: Add Urine Culture? No; Bacteria Urine 1+ /hpf; Hyaline Casts Urine 0-4 /lpf; Mucus Urine 1+ /hpf; Squamous Epithelial Cell Urine 0-4 /hpf (0-5)
--- NOTE | 2021-12-22 06:50 | PC.NURSE ---
report given to Eva LINDQUIST
[2021-12-22 07:13] VITALS: BP 146/83; PULSE 74; RESP 16; O2SAT 98
[2021-12-22 08:08] VITALS: BP 144/84; PULSE 95; RESP 16; O2SAT 95
== END 2021-12-22 08:09 | disposition home or self-care (01) ==
PROVIDERS: Emergency Medicine; Emergency Provider Family Medicine; PCP Nurse Practitioner Family
DX: R11.2 Nausea with vomiting, unspecified (principal); Z85.3 Personal history of malignant neoplasm of breast
CPT/HCPCS: 74177; 80053; 81001; 83605; 83690; 84145; 85025; 86140; 96361; 96374; 99284; J2405; J7030; Q9967

== ENCOUNTER → 2022-04-23 09:28 | Outpatient (BNVA) | payer OTHER, SELFPAY | PROVIDERS: PCP Nurse Practitioner Family; Visit Provider Nurse Practitioner Family | DX: Z00.00 Encounter for general adult medical examination without abnormal findings (principal); E55.9 Vitamin D deficiency, unspecified; J30.2 Other seasonal allergic rhinitis; R11.0 Nausea; K21.9 Gastro-esophageal reflux disease without esophagitis; I10 Essential (primary) hypertension; R42 Dizziness and giddiness; R13.10 Dysphagia, unspecified; J32.9 Chronic sinusitis, unspecified; R68.2 Dry mouth, unspecified; M79.10 Myalgia, unspecified site; M25.50 Pain in unspecified joint; J45.30 Mild persistent asthma, uncomplicated; R53.83 Other fatigue | CPT/HCPCS: 80053; 80061; 82306; 84443; 85651; 86140; 86200; 86431; 86705; 86706; 86709; 86803; 87340 ==

== ENCOUNTER → 2022-07-15 08:37 | Outpatient (BNVA) | payer MEDICARE, SELFPAY | PROVIDERS: PCP Nurse Practitioner Family; Visit Provider Otolaryngology | DX: R13.10 Dysphagia, unspecified (principal) | CPT/HCPCS: 31575; 99203; 99204 ==

== ENCOUNTER → 2023-03-19 09:00 | Outpatient (BNVA) | payer MEDICARE, SELFPAY | PROVIDERS: PCP Nurse Practitioner Family; Visit Provider Nurse Practitioner Family | DX: K21.9 Gastro-esophageal reflux disease without esophagitis (principal); E78.00 Pure hypercholesterolemia, unspecified; I10 Essential (primary) hypertension; J45.909 Unspecified asthma, uncomplicated; J30.2 Other seasonal allergic rhinitis; R11.0 Nausea; E55.9 Vitamin D deficiency, unspecified; Z00.00 Encounter for general adult medical examination without abnormal findings; J45.30 Mild persistent asthma, uncomplicated | CPT/HCPCS: 80053; 80061; 82306; 84443; 85025 ==

== ENCOUNTER → 2024-02-15 09:02 | Outpatient (BNVA) | payer MEDICARE, SELFPAY | PROVIDERS: PCP Nurse Practitioner Family; Visit Provider Nurse Practitioner Family | DX: Z78.0 Asymptomatic menopausal state (principal); E78.00 Pure hypercholesterolemia, unspecified; K21.9 Gastro-esophageal reflux disease without esophagitis; J45.909 Unspecified asthma, uncomplicated; I10 Essential (primary) hypertension; E55.9 Vitamin D deficiency, unspecified; Z00.00 Encounter for general adult medical examination without abnormal findings | CPT/HCPCS: 80053; 80061; 82306; 82607; 85025 ==

== ENCOUNTER 2024-02-28 13:09 | Outpatient (CLI) | payer MEDICARE, SELFPAY ==
--- NOTE | 2024-02-28 13:30 | XR_ITS ---
WS: [id number] DEXA (DUAL ENERGY X-RAY ABSORPTIOMETRY) Bone mineral density was performed using a [employer] machine. HISTORY: Z78.0 - Asymptomatic menopausal state COMPARISON: 08/18/2021 Lumbar spine BMD (L1-L4): 0.965 g/cm2 T score: -1.8 Z score: -0.2 Total hip BMD: Left: 0.759 g/cm2. T score: -2.0 Z score: -0.7 Right: 0.702 g/cm2. T score: -2.4 Z score: -1.1 10 year probability of a major osteoporotic fracture is 30.1%. Compared to the prior study from 08/18/2021. Lumbar spine bone mineral density has decreased by 0.6%. Bilateral hips bone mineral density has decreased by 12.9%. XR/XR DEXA axial skeleton* [id number] IMPRESSION: OSTEOPENIA based upon the WHO classification for females. Significant decrease in bone mineral density within the hips since the prior .
== END 2024-02-28 13:10 | disposition home or self-care (01) ==
LOC: RAD 13:09
PROVIDERS: PCP Nurse Practitioner Family; Visit Provider Nurse Practitioner Family
DX: Z13.820 Encounter for screening for osteoporosis (principal); Z78.0 Asymptomatic menopausal state; M85.89 Other specified disorders of bone density and structure, multiple sites
CPT/HCPCS: 77080

== ENCOUNTER → 2024-07-26 11:46 | Outpatient (BNVA) | payer MEDICARE, SELFPAY | PROVIDERS: PCP Nurse Practitioner Family; Visit Provider Nurse Practitioner Family | DX: T14.8XXA Other injury of unspecified body region, initial encounter (principal); L08.9 Local infection of the skin and subcutaneous tissue, unspecified; W57.XXXA Bitten or stung by nonvenomous insect and other nonvenomous arthropods, initial encounter | CPT/HCPCS: 81000; 85025; 87070 ==

== ENCOUNTER → 2025-05-09 09:30 | Outpatient (BNVA) | payer MEDICARE, SELFPAY | PROVIDERS: PCP Nurse Practitioner Family; Visit Provider Nurse Practitioner Family | DX: I10 Essential (primary) hypertension (principal); J45.909 Unspecified asthma, uncomplicated; E55.9 Vitamin D deficiency, unspecified | CPT/HCPCS: 80053; 80061; 82306; 84443; 85025 ==

== ENCOUNTER → 2025-06-12 08:35 | Outpatient (BNVA) | payer MEDICARE, SELFPAY | PROVIDERS: PCP Nurse Practitioner Family; Visit Provider Nurse Practitioner Family | DX: M79.671 Pain in right foot (principal); S92.331A Displaced fracture of third metatarsal bone, right foot, initial encounter for closed fracture; S92.341A Displaced fracture of fourth metatarsal bone, right foot, initial encounter for closed fracture; S90.851A Superficial foreign body, right foot, initial encounter; W19.XXXA Unspecified fall, initial encounter | CPT/HCPCS: 73630 ==

== ENCOUNTER → 2025-06-14 08:36 | Outpatient (BNVA) | payer MEDICARE, SELFPAY | PROVIDERS: PCP Nurse Practitioner Family; Visit Provider Podiatrist Foot & Ankle Surgery | DX: S92.321A Displaced fracture of second metatarsal bone, right foot, initial encounter for closed fracture (principal); S92.331A Displaced fracture of third metatarsal bone, right foot, initial encounter for closed fracture; S92.341A Displaced fracture of fourth metatarsal bone, right foot, initial encounter for closed fracture; W10.8XXA Fall (on) (from) other stairs and steps, initial encounter | CPT/HCPCS: 99204 ==

== ENCOUNTER → 2025-07-05 08:22 | Outpatient (BNVA) | payer MEDICARE, SELFPAY | PROVIDERS: PCP Nurse Practitioner Family; Visit Provider Podiatrist Foot & Ankle Surgery | DX: S92.341A Displaced fracture of fourth metatarsal bone, right foot, initial encounter for closed fracture (principal); S92.331A Displaced fracture of third metatarsal bone, right foot, initial encounter for closed fracture; S92.321A Displaced fracture of second metatarsal bone, right foot, initial encounter for closed fracture; X58.XXXA Exposure to other specified factors, initial encounter | CPT/HCPCS: 73630; 99213 ==